=== PATIENT | female | born 1965 | race Two or more races ===

== ENCOUNTER 2018-08-26 08:40 | Outpatient (CLI) | payer OTHER ==
[~2018-08-26 08:40] MED LIST: ADVIL200 MG PO; CIPRO500 MG PO; CLONAZEPAM2 MG PO; LAMICTAL150 MG PO; RESTORIL30 M1 PO; WELLBUTRIN XL300 MG PO; ZYPREXA10 MG PO
== END 2018-08-26 08:59 | disposition home or self-care (01) ==
LOC: RAD 08:40
DX: Z00.00 Encounter for general adult medical examination without abnormal findings (principal); Z86.59 Personal history of other mental and behavioral disorders; R06.02 Shortness of breath; R63.0 Anorexia; Z13.89 Encounter for screening for other disorder; Z13.220 Encounter for screening for lipoid disorders; Z11.3 Encounter for screening for infections with a predominantly sexual mode of transmission; Z12.11 Encounter for screening for malignant neoplasm of colon; Z12.39 Encounter for other screening for malignant neoplasm of breast; N64.89 Other specified disorders of breast

== ENCOUNTER 2018-08-26 10:00 | Outpatient (CLI) | payer OTHER | END 2018-08-26 11:06 | disposition home or self-care (01) | LOC: LAB 10:00 | DX: Z00.00 Encounter for general adult medical examination without abnormal findings (principal); Z86.59 Personal history of other mental and behavioral disorders; R06.02 Shortness of breath; R63.0 Anorexia; Z13.89 Encounter for screening for other disorder; Z13.220 Encounter for screening for lipoid disorders; Z11.3 Encounter for screening for infections with a predominantly sexual mode of transmission; Z12.11 Encounter for screening for malignant neoplasm of colon; N64.89 Other specified disorders of breast; Z12.39 Encounter for other screening for malignant neoplasm of breast ==

== ENCOUNTER 2022-12-13 05:25 | Day surgery (SDC) | payer OTHER ==
[~2022-12-13 05:25] MED LIST changes: +ABILIFY10 MG PO; +CLONAZEPAM0.5 MG PO; +PROTONIX20 MG PO; +TRAZODONE HCL150 MG PO
[2022-12-13] MEDS ORDERED: TRAM1TAB98 PO (12:05)
== END 2022-12-13 13:00 | disposition home or self-care (01) ==
LOC: CIR.AMB 05:25
PROVIDERS: ATTEND Obstetrics & Gynecology
DX: D27.0 Benign neoplasm of right ovary (principal); N83.8 Other noninflammatory disorders of ovary, fallopian tube and broad ligament; D25.1 Intramural leiomyoma of uterus; R93.5 Abnormal findings on diagnostic imaging of other abdominal regions, including retroperitoneum; Z20.822 Contact with and (suspected) exposure to COVID-19

== ENCOUNTER 2024-09-19 12:13 | Emergency (ER) | payer OTHER ==
[~2024-09-19] VITALS: Ht 165.1 cm; Wt 72.6 kg
[~2024-09-19 12:13] MED LIST changes: +TRAM1TAB98 PO
[2024-09-19] MEDS ORDERED: LAMICTAL5 MG PO (12:57)
[2024-09-19] MEDS ORDERED: EFFEXOR XR37.5 MG PO (12:57)
[2024-09-19] MEDS ORDERED: EZALLOR SPRINKLE5 MG PO (12:57)
[2024-09-19 15:50] LABS: HEMOGLOBIN 12.9 g/dL (12.0-15.00); MEAN CELL VOLUME 85.7 fL (80.00-100.00); MEAN CORPUSCULAR HEMOGLOBIN 27.7 pg (27.00-32.0); MEAN CORPUSCULAR HGB CONC 32.3 g/dl (32.0-36.0); PLATELET COUNT 177 K/uL (150-450); RED BLOOD COUNT 4.67 M/uL (4.00-6.00); RED CELL DISTRIBUTION WIDTH 13.4 % (11.5-14.5)
[2024-09-19] MEDS ORDERED: ZITHROMAX500 MG PO (17:49)
== END 2024-09-19 18:08 | disposition home or self-care (01) ==
LOC: ER 12:16
DX: J06.9 Acute upper respiratory infection, unspecified (principal); Z20.822 Contact with and (suspected) exposure to COVID-19